=== PATIENT | male | born 1985 | race Caucasian/White ===

== ENCOUNTER 2020-05-07 19:45 | Inpatient (IN) | payer MEDICAID, SELFPAY ==
[2020-05-07 19:46] VITALS: BP 129/85; PULSE 98; RESP 16; TEMP 35.7; O2SAT 98; BMI 32.5
--- NOTE | 2020-05-07 19:55 | ED.VIS.GEN ---
History of Present Illness Chief Complaint: Substance Abuse Detail of Chief Complaint: Requesting detox from fentanyl Informant: Patient Onset: - - Has been injecting for greater than 3 years Context: Gradual Onset Timing: Continuous Quality: Injects a couple grams of fentanyl daily Location: Extremities Current Severity: - - No symptoms of withdrawal Worsened by: Not applicable Relieved by: Not applicable Associated Symptoms: No symptoms presently Narrative: Patient is a 34-year-old male who does smoke and injects fentanyl daily. He has been using for greater than 3 years. His last hepatitis and HIV tests were negative. He works construction. He denies alcohol use. He denies any other drug use. He denies headache, visual, ocular or auditory symptoms. He denies neck pain. He denies history of endocarditis. He denies history of infection in back injection sites. He denies GI symptoms. He denies urologic symptoms. Prior similar symptoms: Yes Recent Illness/Hospitalization: No - Past Medical History (1) Opiate addiction Status: Acute Past Medical History - Allergies and Home Meds Allergies/Adverse Reactions: Allergies No Known Allergies Allergy (Verified 05/07/20 19:48) Primary Care Physician: Rosario Doctor,Out of [NON-STAFF] - Past Medical History: None Surgical History: no surgical history Smoking Status: Heavy Smoker (>10/day) Alcohol: None Drugs: - - Fentanyl Review of Systems General: Denies: Chills, Fever, Malaise, Subjective, Sweats Eyes: Denies: Visual changes - bilaterally, Blurred Vision - bilaterally ENT: Denies: Rhinorrhea, Sore throat Cardiovascular: Denies: Chest pain, Palpitations Respiratory: Denies: Dyspnea, Cough, Dyspnea on exertion Gastrointestinal: Denies: Abdominal pain, Nausea, Vomiting, Diarrhea, Melena, Hematochezia Genitourinary: Denies: Hematuria, Frequency Musculoskeletal: Denies: Myalgias, Arthralgias, Neck pain, Back pain, Swelling, Extremity Pain, -, - Skin: Reports: Wounds - Track barriga. Denies: Rash Neurological: Denies: Headache, Weakness Hematologic: Denies: Easy bruising, Easy bleeding Allergy: Denies: Uticaria Physical Exam Vital Signs/Narrative: Vital Signs Temp Pulse Resp BP Pulse Ox 05/07/20 19:46 96.3 F L 98 16 129/85 H 98 Inital Vital Signs reviewed: Yes General: Well nourished, Well developed, No Acute Distress Head: Normocephalic, Atraumatic Eyes: Perrl, EOMI ENT: Moist mucous membranes, No rhinorrhea Neck: Supple, Nontender Cardiovascular: Regular rate, Regular rhythm, No murmurs Respiratory: No distress, CTA bilaterally, Chest nontender Abdomen: Soft, Nontender, Nondistended, Normal bowel sounds Back: Nontender, Normal Inspection Extremities: Nontender, No edema, - - Patient has numerous track barriga upper extremities. There is no evidence infection. Skin: Normal color, No rash Neurological: Alert, Oriented x3, Cranial nerves II-XII grossly intact, Normal Strength, Normal Sensation Psychological: Normal affect, Normal Mood Diagnostic/Tx/Re-eval Laboratory Results 05/07/20 05/07/20 05/07/20 20:10 20:10 20:10 WBC 9.3 RBC 5.53 Hgb 13.7 Hct 44.6 MCV 80.7 MCH 24.8 L MCHC 30.7 L RDW Std Deviation 44.7 H RDW Coeff of Shelby 15.1 H Plt Count 279 MPV 10.2 Immature Gran % (Auto) 0.400 Neut % (Auto) 63.5 Lymph % (Auto) 23.3 [place] % (Auto) 9.3 Eos % (Auto) 3.1 Baso % (Auto) 0.4 Absolute Neuts (auto) 5.9 Absolute Lymphs (auto) 2.18 Nucleated RBC % 0 Sodium 137 Potassium 4.0 Chloride 107 Carbon Dioxide 26.0 Anion Gap 4 L BUN 13 Creatinine 0.88 Estim Creat Clear Calc 116.59 Est GFR (MDRD) Af Amer 129 Est GFR (MDRD) Non-Af 106 BUN/Creatinine Ratio 14.8 Glucose 103 Calcium 8.9 Total Bilirubin 0.50 AST 60 H ALT 126 H Alkaline Phosphatase 110 Total Protein 8.3 H Albumin 3.5 Globulin 4.8 H Albumin/Globulin Ratio 0.7 L Urine Opiates Screen Urine Methadone Screen Ur Barbiturates Screen Ur Phencyclidine Scrn Ur Amphetamines Screen U Methamphetamin-MDMA U Benzodiazepines Scrn Urine Cocaine Screen U Cannabinoids Screen Ur Drug Screen Comment Ethyl Alcohol 3.0 05/07/20 20:10 WBC RBC Hgb Hct MCV MCH MCHC RDW Std Deviation RDW Coeff of [place] Plt Count MPV Immature Gran % (Auto) Neut % (Auto) Lymph % (Auto) [place] % (Auto) Eos % (Auto) Baso % (Auto) Absolute Neuts (auto) Absolute Lymphs (auto) Nucleated RBC % Sodium Potassium Chloride Carbon Dioxide Anion Gap BUN Creatinine Estim Creat Clear Calc Est GFR (MDRD) Af Amer Est GFR (MDRD) Non-Af BUN/Creatinine Ratio Glucose Calcium Total Bilirubin AST ALT Alkaline Phosphatase Total Protein Albumin Globulin Albumin/Globulin Ratio Urine Opiates Screen NEGATIVE Urine Methadone Screen NEGATIVE Ur Barbiturates Screen NEGATIVE Ur Phencyclidine Scrn NEGATIVE Ur Amphetamines Screen POSITIVE H U Methamphetamin-MDMA POSITIVE H U Benzodiazepines Scrn NEGATIVE Urine Cocaine Screen NEGATIVE U Cannabinoids Screen POSITIVE H Ur Drug Screen Comment Ethyl Alcohol - Medical Decision Making Addiction order set was initiated. Since patient is symptom-free presently no treatment was initiated. He is aware that he cannot smoke. ED Disposition - Plan for ED Patient: Disposition: Acute Care [facility] Diagnosis: Illicit drug use, Opiate abuse, continuous, Methamphetamine use Referrals: [facility] Doctor,Out of [NON-STAFF] -
[2020-05-07 20:29] LABS: Absolute Lymphocyte Count 2.18 X10^3/uL (0.83-4.51); Absolute Neutrophil Count 5.9 X10^3/uL (2.0-7.7); Basophil# 0.04 X10^3/uL; Basophil% 0.4 % (0-1); Eosinophil# 0.29 X10^3/uL; Eosinophils% 3.1 % (0-5); Hematocrit 44.6 % (40-54); Hemoglobin 13.7 g/dL (13.0-16.5); Lymphocyte # 2.18 X10^3/ul (4.0); Lymphocyte % 23.3 % (19-41); Mean Corp Hgb Conc 30.7 g/dL (32-36); Mean Corpuscular Hgb 24.8 pg (27.0-32.0); Mean Corpuscular Volume 80.7 fL (80-94); Mean Platelet Vol. 10.2 fl (6.2-12.0); Monocyte# 0.87 X10^3/uL; Monocyte% 9.3 % (0-10); NRBC Flagged by Analyzer 0 % (0-5); Neutrophil # 5.92 X10^3/uL (2.7-7.7); Neutrophil % 63.5 % (47-70); Platelet Count 279 K/mm3 (150-450); RBC Distribution Width CV 15.1 % (11.6-14.6); RBC Distribution Width SD 44.7 fl (35.1-43.9); Red Blood Count 5.53 M/mm3 (4.6-6.2); White Blood Count 9.3 K/mm3 (4.4-11.0)
--- NOTE | 2020-05-07 20:42 | CM.ED ---
Social Work Consult: Substance Abuse Informant: Self Referral Met with patient in room. Introduced self and social research assistant role. Patient agreeable to speaking with this social research assistant. Patient reports to be seeking help with Fentanyl use. Patient reports to want to get clean. Patient wanting to admit to [facility] for medical management of withdrawal symptoms. Patient reports to have last used this morning. Patient denies any mental health history of current suicidal thoughts. Patient verbally agreeing to [facility] contract. Patient with no questions. Vlad JAVIER, ABELARDO
[2020-05-07 20:54] LABS: ALB/GLOB Ratio 0.7 RATIO (0.9-2.4); AST(SGOT) 60 U/L (15-37); Alanine Aminotransfer ALT/SGPT 126 U/L (16-61); Albumin, Serum 3.5 g/dL (3.2-5.0); Alkaline Phosphatase 110 U/L (45-117); Anion Gap 4 (5-15); BUN 13 mg/dL (7-18); BUN/Creat Ratio 14.8 RATIO (10-20); Calcium,Total 8.9 mg/dL (8.5-10.1); Chloride 107 mmol/L (98-107); Creatinine, Serum 0.88 mg/dL (0.70-1.30); EST Glomerular Filtration Rate 106 mL/min (>60); Est Glom Filt Rate - Afr Amer 129 mL/min (>60); Estimated Creatinine Clearance 116.59 ml/min; Globulin 4.8 g/dL (2.2-4.2); Glucose 103 mg/dL (74-106); Protein, Total 8.3 g/dL (6.4-8.2); Sodium Level 137 mmol/L (136-145)
[2020-05-07 21:06] LABS: Amphetamine Urine VISTA POSITIVE (<1000 ng/mL); Barbiturate Urine VISTA NEGATIVE (< 200 ng/mL); Benzodiazepine Urine VISTA NEGATIVE (< 200 ng/mL); Cocaine Urine VISTA NEGATIVE (< 300 ng/mL); Ecstacy Urine VISTA POSITIVE (< 500 ng/mL); Methadone Urine VISTA NEGATIVE (< 300 ng/mL); PCP Urine VISTA NEGATIVE (< 25 ng/mL); THC Urine VISTA POSITIVE (< 50 ng/mL); Vista UDS pH Range 6
[2020-05-07 21:36] VITALS: BP 125/78; PULSE 81; RESP 16; TEMP 36.6; O2SAT 98
--- NOTE | 2020-05-07 21:43 | CM.ED ---
Social Work Telephone call to [facility]un[facility] Rodas. Yunior updated on patient admission to [facility] program. Vlad Sharpe ELECTRICAL APPLIANCE SERVICER, TAMIKAS
[2020-05-07 21:56] VITALS: BMI 31.7
[2020-05-07 22:02] VITALS: BMI 31.8
--- NOTE | 2020-05-07 22:05 | HP.PCM_ITS ---
Problem List (1) Opiate addiction Status: Acute (2) Illicit drug use Status: Acute (3) Opiate abuse, continuous Status: Acute (4) Methamphetamine use Status: Acute History of Present Illness Date of Admission: 05/07/20 Chief Complaint: fentanyl withdrawal The patient is a 34 year old M presents seeking treatment for fentanyl wi thdrawal. Patient last used was around 5:00 this morning and has been experiencing abdominal cramps, restless legs, rhinitis and yawning. Patient has never sought treatment. Patient is here with his ex-girlfriend who is already established with a program called [facility] and he wishes to follow-up with them after discharge. He does state that he does use marijuana occasionally. Does not over use methamphetamines but is concerned that some of his drugs are contaminated with it. He injects his drugs with exception of the marijuana. [] Past Medical History Medical History: Medical History (Last Updated 05/07/20 @ 22:[address] Kwaku Burroughs, DO) Alcoholism F10.20 Polysubstance (excluding opioids) dependence, daily use F19.20 Allergies No Known Allergies Allergy (Verified 05/07/20 19:48) Home Medications: Ambulatory Orders Medication Instructions Recorded NK 05/07/20 Surgical History: no surgical history Smoking Status: Heavy Smoker (>10/day) Tobacco Use: Cigarettes Alcohol: None Drugs: Marijuana, - - Fentanyl - *Family History Maternal History Items: No pertinent history Review of Systems Constitutional: Denies: Anorexia, Chills, Fever Eyes: Denies: Blurred vision, Double vision HEENT: Denies: Head Aches, Sinus Congestion, Sinus Drainage Cardiovascular: Denies: Chest Pain, Palpitations Respiratory: Denies: Cough, Shortness of breath at rest, Sputum production Gastrointestinal: Reports: Abdominal Pain. Denies: Nausea, Vomiting Hematologic/ Lymphatic: Denies: Easy Bruising, Easy Bleeding Comment: Patient has some irritation in his hand from missed IV injection. All review of systems were negative except as mentioned above in the history of present illness and the other review of systems. VTE Information - Inpt Only VTE Present on Admission: No VTE Mechan Device Prophylaxis: None VTE Pharm Prophylaxis ordered?: No Reason prophylaxis not ordered:: Treatment Not Indicated Patient Problems: Active and Suspected Problems Opiate addiction (Acute) Illicit drug use (Acute) Opiate abuse, continuous (Acute) Methamphetamine use (Acute) - Physical Exam Vitals/I&O's: Vital Signs Temp Pulse Resp BP Pulse Ox 36.6 C 81 16 125/78 H 98 05/07/20 21:36 05/07/20 21:36 05/07/20 21:36 05/07/20 21:36 05/07/20 21:36 Oxygen Delivery Method Room Air Weight: 94.801 kg Body Mass Index (BMI) 31.7 General: Alert, No apparent distress HEENT: Atraumatic, Normocephalic Oral: Moist Mucosa, No Gingival or Mucosal Lesions/ Ulcerations Neck: No Nodes, Thyroid Normal Size and Texture Lungs: Clear to auscultation, Normal air movement, No rhonchi, No wheeze, No rales Cardiovascular: Regular rate, Regular Rhythm, Normal S1, Normal S2, No murmurs Abdomen: Bowel Sounds Present, Soft, Non Tender, Non-Distended, No Hepato-spl enomegaly Extremities: No edema, No Calf Tenderness Skin: No rashes, No breakdown Psych/Mental Status: Appropriate, Anxious Laboratory Results 05/07/20 20:10: WBC 9.3, RBC 5.53, Hgb 13.7, Hct 44.6, MCV 80.7, MCH 24.8 L, MCHC 30.7 L, RDW Std Deviation 44.7 H, RDW Coeff of Shelby 15.1 H, Plt Count 279, MPV 10.2, Immature Gran % (Auto) 0.400, Neut % (Auto) 63.5, Lymph % (Auto) 23.3, [place] % (Auto) 9.3, Eos % (Auto) 3.1, Baso % (Auto) 0.4, Absolute Neuts (auto) 5.9, Absolute Lymphs (auto) 2.18, Nucleated RBC % 0 05/07/20 20:10: Sodium 137, Potassium 4.0, Chloride 107, Carbon Dioxide 26.0, Anion Gap 4 L, BUN 13, Creatinine 0.88, Estim Creat Clear Calc 116.59, Est GFR (MDRD) Af Amer 129, Est GFR (MDRD) Non-Af 106, BUN/Creatinine Ratio 14.8, Glucose 103, Calcium 8.9, Total Bilirubin 0.50, AST 60 H, ALT 126 H, Alkaline Phosphatase 110, Total Protein 8.3 H, Albumin 3.5, Globulin 4.8 H, Albumin/Globulin Ratio 0.7 L 05/07/20 20:10: Ethyl Alcohol 3.0 05/07/20 20:10: Urine Opiates Screen NEGATIVE, Urine Methadone Screen NEGATIVE, Ur Barbiturates Screen NEGATIVE, Ur Phencyclidine Scrn NEGATIVE, Ur Amphetamines Screen POSITIVE H, U Methamphetamin-MDMA POSITIVE H, U Benzodiazepines Scrn NEGATIVE, Urine Cocaine Screen NEGATIVE, U Cannabinoids Screen POSITIVE H, Ur Drug Screen Comment Assessment/Plan All Active Problems Opiate addiction (Acute) Illicit drug use (Acute) Opiate abuse, continuous (Acute) Methamphetamine use (Acute) 1. Acute opiate withdrawal: Patient will be initiated on buprenorphine taper. Explained the patient that this take place over approximately 3 days. He will have other agents to help him with other somatic complaints while he is here. Patient states that he wishes to follow-up with a program [facility]. Will have a case management help facilitate this. 2. History of alcohol abuse. Patient had been a heavy drinker in the past but has quit and has been sober from that a number of years. 3. VTE prophylaxis low risk and not indicated at this time. Inpatient E&M: 90257 Init Hosp L2
[2020-05-07] MEDS: traZODone 100 MG Tablet PO (22:47)
[2020-05-07] MEDS: Methocarbamol 750 MG Tablet 1500 MG PO (22:47)
[2020-05-07] MEDS: Buprenorphine HCl 2 MG TAB.SUBL SL (22:47)
[2020-05-08] MEDS: hydrOXYzine PAM 25 MG Capsule 50 MG PO ×2 (02:01→17:07)
[2020-05-08] MEDS: cloNIDine HCl 0.1 MG Tablet PO ×2 (02:01→17:07)
[2020-05-08 02:03] VITALS: BP 137/81; PULSE 115; RESP 18; TEMP 37.3; O2SAT 99
[2020-05-08] MEDS: Buprenorphine HCl 2 MG TAB.SUBL SL ×3 (06:28→21:43)
[2020-05-08 06:33] VITALS: BP 123/78; PULSE 87; RESP 16; TEMP 37.1; O2SAT 100
--- NOTE | 2020-05-08 07:58 | PCM.PN.HOSP ---
Patient Problems: Active and Suspected Problems (Last Updated 05/07/20 @ 22:[address] Kwaku Burroughs, DO) Opiate addiction (Acute) Illicit drug use (Acute) Opiate abuse, continuous (Acute) Methamphetamine use (Acute) Reason for Visit: Follow-up on acute opioid withdrawal Subjective: Patient was seen and examined. Denied any new complaints. His Cina score is improving. Objective: Physical exam: General: Alert, No apparent distress HEENT: Atraumatic, Normocephalic Oral: Moist Mucosa, No Gingival or Mucosal Lesions/ Ulcerations Neck: No Nodes, Thyroid Normal Size and Texture Lungs: Clear to auscultation, Normal air movement, No rhonchi, No wheeze, No rales Cardiovascular: Regular rate, Regular Rhythm, Normal S1, Normal S2, No murmurs Abdomen: Bowel Sounds Present, Soft, Non Tender, Non-Distended, No Hepato-splenomegaly Extremities: No edema, No Calf Tenderness Skin: No rashes, No breakdown Psych/Mental Status: Appropriate, Anxious Vitals/I&O's: Vital Signs Temp Pulse Resp BP Pulse Ox 98.7 F 87 16 123/78 H 100 05/08/20 06:33 05/08/20 06:33 05/08/20 06:33 05/08/20 06:33 05/08/20 06:33 Oxygen Delivery Method Room Air Weight: 94.801 kg Body Mass Index (BMI) 31.7 Laboratory Results 05/07/20 20:10: WBC 9.3, RBC 5.53, Hgb 13.7, Hct 44.6, MCV 80.7, MCH 24.8 L, MCHC 30.7 L, RDW Std Deviation 44.7 H, RDW Coeff of [place] 15.1 H, Plt Count 279, MPV 10.2, Immature Gran % (Auto) 0.400, Neut % (Auto) 63.5, Lymph % (Auto) 23.3, [place] % (Auto) 9.3, Eos % (Auto) 3.1, Baso % (Auto) 0.4, Absolute Neuts (auto) 5.9, Absolute Lymphs (auto) 2.18, Nucleated RBC % 0 05/07/20 20:10: Sodium 137, Potassium 4.0, Chloride 107, Carbon Dioxide 26.0, Anion Gap 4 L, BUN 13, Creatinine 0.88, Estim Creat Clear Calc 116.59, Est GFR (MDRD) Af Amer 129, Est GFR (MDRD) Non-Af 106, BUN/Creatinine Ratio 14.8, Glucose 103, Calcium 8.9, Total Bilirubin 0.50, AST 60 H, ALT 126 H, Alkaline Phosphatase 110, Total Protein 8.3 H, Albumin 3.5, Globulin 4.8 H, Albumin/Globulin Ratio 0.7 L 05/07/20 20:10: Ethyl Alcohol 3.0 05/07/20 20:10: Urine Opiates Screen NEGATIVE, Urine Methadone Screen NEGATIVE, Ur Barbiturates Screen NEGATIVE, Ur Phencyclidine Scrn NEGATIVE, Ur Amphetamines Screen POSITIVE H, U Methamphetamin-MDMA POSITIVE H, U Benzodiazepines Scrn NEGATIVE, Urine Cocaine Screen NEGATIVE, U Cannabinoids Screen POSITIVE H, Ur Drug Screen Comment 05/07/20 20:10: Hepatitis A IgM Ab Pending, Hep Bs Antigen Pending, Hep B Core IgM Ab Pending, Hepatitis C Ab (EIA) Pending 05/07/20 20:10: HIV 1&2 Antibody Pending Current Medications Acetaminophen (Acetaminophen 500 Mg Tablet) 500 mg PO Q4H PRN PRN PRN Reason: Temp > 100.4 F Bisacodyl (Bisacodyl 10 Mg Suppository) 10 mg RECTAL DAILY PRN PRN PRN Reason: Constipation Buprenorphine HCl (Buprenorphine Hcl 2 Mg Tab.Subl) 4 mg SL Q8H FELIX; Taper Stop: 05/10/20 22:29 Last Admin: 05/08/20 06:28 Dose: 4 mg Documented by: Clonidine (Clonidine Hcl 0.1 Mg Tablet) 0.1 mg PO Q8H PRN PRN PRN Reason: RESTLESSNESS Last Admin: 05/08/20 02:01 Dose: 0.1 mg Documented by: Dicyclomine HCl (Dicyclomine 10 Mg Capsule) 20 mg PO Q6H PRN PRN PRN Reason: Abdominal Discomfort Gabapentin (Gabapentin 300 Mg Capsule) 300 mg PO Q8H PRN PRN PRN Reason: moderate to severe anxiety Hydroxyzine Pamoate (Hydroxyzine Sonya 25 Mg Capsule) 50 mg PO Q6H PRN PRN PRN Reason: mild anxiety Last Admin: 05/08/20 02:01 Dose: 50 mg Documented by: Ibuprofen (Ibuprofen 600 Mg Tablet) 600 mg PO Q8H PRN PRN PRN Reason: Pain Score 1-10 Influenza Virus Vaccine Quadrival (Influenza Vaccine (6mos+)/Pf 0.5 Ml Syringe) 0.5 ml IM .ONCE ONE Stop: 05/08/20 10:01 Loperamide HCl (Loperamide 2 Mg Capsule) 2 mg PO Q4H PRN PRN PRN Reason: LOOSE STOOLS Methocarbamol (Methocarbamol 750 Mg Tablet) 1,500 mg PO Q6H PRN PRN PRN Reason: MUSCLE SPASM Last Admin: 05/07/20 22:47 Dose: 1,500 mg Documented by: Nicotine (Nicotine 21 Mg Patch) 21 mg TRANSDERM. DAILY FELIX Nutritional Formula (Lactose Free) (Ensure Enlive 120 Ml Liquid) 120 ml PO 4X/DAY FELIX Ondansetron HCl (Ondansetron 8 Mg Tablet) 8 mg PO Q8H PRN PRN PRN Reason: NAUSEA Senna (Senna Tablet) 2 tablet PO QHS PRN PRN PRN Reason: Constipation Trazodone HCl (Trazodone 100 Mg Tablet) 100 mg PO QHS PRN PRN PRN Reason: INSOMNIA Last Admin: 05/07/20 22:47 Dose: 100 mg Documented by: STROKE Vital Signs/Narrative: Vital Signs Temp Pulse Resp BP Pulse Ox 05/08/20 06:33 98.7 F 87 16 123/78 H 100 Medical Necessity - Tobacco Use Smoking Status: Heavy Smoker (>10/day) Tobacco Use: Cigarettes Assessment/Plan All Active Problems (Last Updated 05/07/20 @ 22:[address] Kwaku Burroughs, DO) Opiate addiction (Acute) Illicit drug use (Acute) Opiate abuse, continuous (Acute) Methamphetamine use (Acute) 1. Acute opioid withdrawal, improving, Patient continues to require medication and monitoring for withdrawal based on regular assessment and remains appropriate for ASAM level 4.0 Continue on buprenorphine taper 2. Nicotine dependence, on replacement 3. History of alcohol use disorder, advised to continue to abstain 4. DVT prophylaxis with early ambulation Inpatient E&M: [id number] [facility] [[email or web address]] Hosp L2
[2020-05-08 09:42] LABS: HIV - WCH Non-Reactive (Nonreactive)
[2020-05-08 09:54] VITALS: BP 121/68; PULSE 99; RESP 18; TEMP 36.8; O2SAT 100
[2020-05-08] MEDS: Methocarbamol 750 MG Tablet 1500 MG PO ×2 (09:57→17:07)
[2020-05-08] MEDS: Dicyclomine 10 MG Capsule 20 MG PO (09:57)
[2020-05-08 10:02] VITALS: PULSE 99
--- NOTE | 2020-05-08 12:09 | ADDICTION ---
This parts data writer attempted to meet with patient in his room. Patient did not rouse to 3 verbal attempts. This parts data writer will attempt to meet with patient on 05/09 or at next visit.
[2020-05-08 13:41] VITALS: BP 114/74; PULSE 83; RESP 18; TEMP 36.6; O2SAT 100
[2020-05-08 21:41] VITALS: BP 118/73; PULSE 89; RESP 14; TEMP 36.6; O2SAT 96
[2020-05-08] MEDS: traZODone 100 MG Tablet PO (21:43)
[2020-05-09 05:32] VITALS: BP 116/75; PULSE 84; RESP 18; TEMP 36.2; O2SAT 100
[2020-05-09] MEDS: cloNIDine HCl 0.1 MG Tablet PO ×2 (05:34→14:51)
[2020-05-09] MEDS: Ibuprofen 600 MG Tablet PO ×2 (05:34→22:07)
[2020-05-09] MEDS: Methocarbamol 750 MG Tablet 1500 MG PO ×2 (05:34→14:50)
[2020-05-09] MEDS: Buprenorphine HCl 2 MG TAB.SUBL SL ×3 (05:34→22:05)
--- NOTE | 2020-05-09 07:15 | PN_ITS ---
Patient Problems: Active and Suspected Problems (Last Updated 05/07/20 @ 22:[address] Kwaku Burroughs, DO) Opiate addiction (Acute) Illicit drug use (Acute) Opiate abuse, continuous (Acute) Methamphetamine use (Acute) Reason for Visit: Follow-up on acute opioid withdrawal Subjective: Patient was seen and examined. No acute events overnight. Objective: Physical exam: General: Alert, No apparent distress, comfortable HEENT: Atraumatic, Normocephalic Oral: Moist Mucosa, No Gingival or Mucosal Lesions/ Ulcerations Neck: No Nodes, Thyroid Normal Size and Texture Lungs: Clear to auscultation, Normal air movement, No rhonchi, No wheeze, No rales Cardiovascular: Regular rate, Regular Rhythm, Normal S1, Normal S2, No murmurs Abdomen: Bowel Sounds Present, Soft, Non Tender, Non-Distended, No Hepato- splenomegaly Extremities: No edema, No Calf Tenderness Skin: No rashes, No breakdown Psych/Mental Status: Appropriate, Anxious Vitals/I&O's: Vital Signs Temp Pulse Resp BP Pulse Ox 97.2 F L 84 18 116/75 100 05/09/20 05:32 05/09/20 05:32 05/09/20 05:32 05/09/20 05:32 05/09/20 05:32 Oxygen Delivery Method Room Air Weight: 94.801 kg Body Mass Index (BMI) 31.7 Intake and Output for Last 24 Hours 05/07/20 05/08/20 05/09/20 23:59 23:59 23:59 Intake Total 400 / 1000 1100 / 1100 Balance 400 / 1000 1100 / 1100 Laboratory Results 05/07/20 20:10: HIV 1&2 Antibody Non-Reactive Current Medications Acetaminophen (Acetaminophen 500 Mg Tablet) 500 mg PO Q4H PRN PRN PRN Reason: Temp > 100.4 F Bisacodyl (Bisacodyl 10 Mg Suppository) 10 mg RECTAL DAILY PRN PRN PRN Reason: Constipation Buprenorphine HCl (Buprenorphine Hcl 2 Mg Tab.Subl) 2 mg SL Q8H FELIX; Taper Stop: 05/10/20 22:29 Last Admin: 05/09/20 05:34 Dose: 2 mg Documented by: Clonidine (Clonidine Hcl 0.1 Mg Tablet) 0.1 mg PO Q8H PRN PRN PRN Reason: RESTLESSNESS Last Admin: 05/09/20 05:34 Dose: 0.1 mg Documented by: Dicyclomine HCl (Dicyclomine 10 Mg Capsule) 20 mg PO Q6H PRN PRN PRN Reason: Abdominal Discomfort Last Admin: 05/08/20 09:57 Dose: 20 mg Documented by: Gabapentin (Gabapentin 300 Mg Capsule) 300 mg PO Q8H PRN PRN PRN Reason: moderate to severe anxiety Hydroxyzine Pamoate (Hydroxyzine Sonya 25 Mg Capsule) 50 mg PO Q6H PRN PRN PRN Reason: mild anxiety Last Admin: 05/08/20 17:07 Dose: 50 mg Documented by: Ibuprofen (Ibuprofen 600 Mg Tablet) 600 mg PO Q8H PRN PRN PRN Reason: Pain Score 1-10 Last Admin: 05/09/20 05:34 Dose: 600 mg Documented by: Loperamide HCl (Loperamide 2 Mg Capsule) 2 mg PO Q4H PRN PRN PRN Reason: LOOSE STOOLS Methocarbamol (Methocarbamol 750 Mg Tablet) 1,500 mg PO Q6H PRN PRN PRN Reason: MUSCLE SPASM Last Admin: 05/09/20 05:34 Dose: 1,500 mg Documented by: Nicotine (Nicotine 21 Mg Patch) 21 mg TRANSDERM. DAILY FELIX Last Admin: 05/08/20 09:58 Dose: 21 mg Documented by: Nutritional Formula (Lactose Free) (Ensure Enlive 120 Ml Liquid) 120 ml PO 4X/DAY FELIX Last Admin: 05/08/20 21:43 Dose: Not Given Documented by: Ondansetron HCl (Ondansetron 8 Mg Tablet) 8 mg PO Q8H PRN PRN PRN Reason: NAUSEA Senna (Senna Tablet) 2 tablet PO QHS PRN PRN PRN Reason: Constipation Trazodone HCl (Trazodone 100 Mg Tablet) 100 mg PO QHS PRN PRN PRN Reason: INSOMNIA Last Admin: 05/08/20 21:43 Dose: 100 mg Documented by: STROKE Vital Signs/Narrative: Vital Signs Temp Pulse Resp BP Pulse Ox 05/09/20 05:32 97.2 F L 84 18 116/75 100 Medical Necessity - Tobacco Use Smoking Status: Heavy Smoker (>10/day) Tobacco Use: Cigarettes Assessment/Plan All Active Problems (Last Updated 10/13/20 @ 22:[address] Kwaku Burroughs, DO) Opiate addiction (Acute) Illicit drug use (Acute) Opiate abuse, continuous (Acute) Methamphetamine use (Acute) 1. Acute opioid withdrawal, improving, Patient continues to require medication and monitoring for withdrawal based on regular assessment and remains appropriate for ASAM level 4.0 Continue on buprenorphine taper 2. Nicotine dependence, on replacement 3. History of alcohol use disorder, advised to continue to abstain 4. DVT prophylaxis with early ambulation Inpatient E&M: 36847 Subs Hosp L2
--- NOTE | 2020-05-09 09:54 | ADDICTION ---
this law writer met with patient in his room to conduct ASAM, MSE and DUDIT assessments and to plan for discharge. Patient was alert and oriented and participated appropraitely but appeared agitated throughout this meeting. Patient plans to discharge to home after completing medical withdrawal management and has agreed to schedule an appointment with [facility] on the day that he discharges. He declined coordination by this law writer. He noted that he has transportation home after discharge. Completed documentation to be sent to [facility].
[2020-05-09 10:47] VITALS: BP 120/68; PULSE 86; RESP 18; TEMP 36.8; O2SAT 100
[2020-05-09 14:52] VITALS: BP 103/47; PULSE 80; RESP 16; TEMP 36.4; O2SAT 99
--- NOTE | 2020-05-09 15:41 | CHAPLAIN ---
Type of Pastoral Visit _x__ Initial Visit ___ Follow-up Visit ___ On-call Visit ___ General Patient Visit ___ Spiritual Assessment ___ Family Conference ___ Bereavement ___ Rapid Response ___ Code Blue ___ Other (describe below) Pastoral Care Referral From _x__ Patient ___ Family ___ Nurse ___ Physician ___ [facility] ___ Chief Meter Reader ___ Other (describe below) Sacrament/Intervention _x__ Active listening ___ Anointing ___ Rastafari ___ Bereavement ___ Communion ___ Caitlin exploration ___ ___ Life review _x__ Prayer ___ Reconciliation ___ Sacrament of Sick _x__ Supportive presence ___ Wedding ___ Other (describe below) Pastoral Comments patient was alert and able to talk; welcomed visit and presence; pt speaks of desire to get clean and to more normal life; pt has support of his mother and brother; 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
[2020-05-09 22:00] VITALS: BP 104/63; PULSE 79; RESP 18; TEMP 36.6; O2SAT 97
[2020-05-09] MEDS: traZODone 100 MG Tablet PO (22:07)
--- NOTE | 2020-05-10 07:48 | PN_ITS ---
Patient Problems: Active and Suspected Problems (Last Updated 05/07/20 @ 22:[address] Kwaku Burroughs, DO) Opiate addiction (Acute) Illicit drug use (Acute) Opiate abuse, continuous (Acute) Methamphetamine use (Acute) Reason for Visit: Follow-up on acute opioid withdrawal Subjective: atient was seen and examined. Objective: Physical exam: General: Alert, No apparent distress, comfortable HEENT: Atraumatic, Normocephalic Oral: Moist Mucosa, No Gingival or Mucosal Lesions/ Ulcerations Neck: No Nodes, Thyroid Normal Size and Texture Lungs: Clear to auscultation, Normal air movement, No rhonchi, No wheeze, No rales Cardiovascular: Regular rate, Regular Rhythm, Normal S1, Normal S2, No murmurs Abdomen: Bowel Sounds Present, Soft, Non Tender, Non-Distended, No Hepato- splenomegaly Extremities: No edema, No Calf Tenderness Skin: No rashes, No breakdown Psych/Mental Status: Appropriate, Anxious Vitals/I&O's: Vital Signs Temp Pulse Resp BP Pulse Ox 97.8 F 79 18 104/63 97 05/09/20 22:00 05/09/20 22:00 05/09/20 22:00 05/09/20 22:00 05/09/20 22:00 Oxygen Delivery Method Room Air Weight: 94.801 kg Body Mass Index (BMI) 31.7 Intake and Output for Last 24 Hours 05/08/20 05/09/20 05/10/20 23:59 23:59 23:59 Intake Total 400 / 1000 1500 / 1900 400 / 400 Balance 400 / 1000 1500 / 1900 400 / 400 Current Medications Acetaminophen (Acetaminophen 500 Mg Tablet) 500 mg PO Q4H PRN PRN PRN Reason: Temp > 100.4 F Bisacodyl (Bisacodyl 10 Mg Suppository) 10 mg RECTAL DAILY PRN PRN PRN Reason: Constipation Buprenorphine HCl (Buprenorphine Hcl 2 Mg Tab.Subl) 2 mg SL Q12H FELIX; Taper Stop: 05/10/20 22:29 Last Admin: 05/09/20 22:05 Dose: 2 mg Documented by: Clonidine (Clonidine Hcl 0.1 Mg Tablet) 0.1 mg PO Q8H PRN PRN PRN Reason: RESTLESSNESS Last Admin: 05/09/20 14:51 Dose: 0.1 mg Documented by: Dicyclomine HCl (Dicyclomine 10 Mg Capsule) 20 mg PO Q6H PRN PRN PRN Reason: Abdominal Discomfort Last Admin: 05/08/20 09:57 Dose: 20 mg Documented by: Gabapentin (Gabapentin 300 Mg Capsule) 300 mg PO Q8H PRN PRN PRN Reason: moderate to severe anxiety Hydroxyzine Pamoate (Hydroxyzine Sonya 25 Mg Capsule) 50 mg PO Q6H PRN PRN PRN Reason: mild anxiety Last Admin: 05/08/20 17:07 Dose: 50 mg Documented by: Ibuprofen (Ibuprofen 600 Mg Tablet) 600 mg PO Q8H PRN PRN PRN Reason: Pain Score 1-10 Last Admin: 05/09/20 22:07 Dose: 600 mg Documented by: Loperamide HCl (Loperamide 2 Mg Capsule) 2 mg PO Q4H PRN PRN PRN Reason: LOOSE STOOLS Methocarbamol (Methocarbamol 750 Mg Tablet) 1,500 mg PO Q6H PRN PRN PRN Reason: MUSCLE SPASM Last Admin: 05/09/20 14:50 Dose: 1,500 mg Documented by: Nicotine (Nicotine 21 Mg Patch) 21 mg TRANSDERM. DAILY FELIX Last Admin: 05/09/20 09:59 Dose: 21 mg Documented by: Nutritional Formula (Lactose Free) (Ensure Enlive 120 Ml Liquid) 120 ml PO 4X/DAY [facility] Last Admin: 05/09/20 22:31 Dose: Not Given Documented by: Ondansetron HCl (Ondansetron 8 Mg Tablet) 8 mg PO Q8H PRN PRN PRN Reason: NAUSEA Senna (Senna Tablet) 2 tablet PO QHS PRN PRN PRN Reason: Constipation Trazodone HCl (Trazodone 100 Mg Tablet) 100 mg PO QHS PRN PRN PRN Reason: INSOMNIA Last Admin: 05/09/20 22:07 Dose: 100 mg Documented by: Medical Necessity - Tobacco Use Smoking Status: Heavy Smoker (>10/day) Tobacco Use: Cigarettes Assessment/Plan All Active Problems (Last Updated 05/07/20 @ 22:[address] Kwaku Burroughs, DO) Opiate addiction (Acute) Illicit drug use (Acute) Opiate abuse, continuous (Acute) Methamphetamine use (Acute) 1. Acute opioid withdrawal, improving, Patient continues to require medication and monitoring for withdrawal based on regular assessment and remains appropriate for ASAM level 4.0 Continue on buprenorphine taper 2. Nicotine dependence, on replacement 3. History of alcohol use disorder, advised to continue to abstain 4. DVT prophylaxis with early ambulation Inpatient E&M: 61924 Subs Hosp L2
[2020-05-10 08:08] LABS: Hepatitis A IgM Antibody Negative (Negative); Hepatitis B Core AB IgM Negative (Negative)
[2020-05-10 10:11] VITALS: BP 99/54; PULSE 72; RESP 18; TEMP 36.9; O2SAT 95
[2020-05-10] MEDS: Buprenorphine HCl 2 MG TAB.SUBL SL (10:19)
--- NOTE | 2020-05-10 11:42 | PCM.DC ---
- Discharge Diagnoses Current Active Problems: Current Active and Chronic Problems (Last Updated 05/07/20 @ 22:[address] Kwaku Burroughs, DO) Opiate addiction (Acute) Illicit drug use (Acute) Opiate abuse, continuous (Acute) Methamphetamine use (Acute) Reason(s) for Visit for Discharge Instructions: Acute opioid withdrawal You will use the following diet at home:: Regular Your food should be the consistency of: Regular Your liquids should be the consistency of: Regular/Thin Discharge Activity: Return to Normal Activity Additional Instructions: You are advised to stop using opioids. Follow-up with your outpatient [facility] program as scheduled Allergies/Adverse Reactions: Allergies No Known Allergies Allergy (Verified 05/07/20 19:48) Medications to take at Discharge NK 05/07/20 Primary Care Physician: Rosario De La Paz,Out of [NON-STAFF] - Please follow up with your Primary Care Physician in: within 1-2 weeks Test Results: Test results from this visit will be discussed in further detail at your follow-up appointment, if applicable. Proposed Discharge Date: 05/10/20
--- NOTE | 2020-05-10 11:47 | DS.PCM_ITS ---
Discharge Date and Diagnosis - Problem List Patient Problems: Active and Suspected Problems (Last Updated 05/07/20 @ 22:[address] Kwaku Burroughs DO) Opiate addiction (Acute) Illicit drug use (Acute) Opiate abuse, continuous (Acute) Methamphetamine use (Acute) Date of Admission: 05/07/20 Date of Discharge: 05/10/20 - Primary Discharge Diagnosis Acute Problems: Active Problems (Last Updated 05/07/20 @ 22:[address] Kwaku Burroughs DO) Acute opioid withdrawal Polysubstance use disorder Nicotine dependence Newly diagnosed chronic hepatitis B and C Hospital Course and Treatment Operations: None Procedures: None Summary of Care Provided: The patient is a 34 year old M with past medical history of polysubstance use who comes in with opiate withdrawal symptoms from fentanyl. [facility] and maintained on the buprenorphine taper. He continued to do well. His HIV results were negative. Acute hepatitis panel was positive for hepatitis B and C. Patient was told to follow-up with his primary care doctor for referral for treatment. Patient Problems: Active and Suspected Problems (Last Updated 05/07/20 @ 22:[address] Kwaku Burroughs DO) Opiate addiction (Acute) Illicit drug use (Acute) Opiate abuse, continuous (Acute) Methamphetamine use (Acute) Subjective: On the day of discharge, patient was seen and examined. Denied any new complaints. Objective: Physical exam: General: Alert, No apparent distress, comfortable HEENT: Atraumatic, Normocephalic Oral: Moist Mucosa, No Gingival or Mucosal Lesions/ Ulcerations Neck: No Nodes, Thyroid Normal Size and Texture Lungs: Clear to auscultation, Normal air movement, No rhonchi, No wheeze, No rales Cardiovascular: Regular rate, Regular Rhythm, Normal S1, Normal S2, No murmurs Abdomen: Bowel Sounds Present, Soft, Non Tender, Non-Distended, No Hepato- splenomegaly Extremities: No edema, No Calf Tenderness Skin: No rashes, No breakdown Psych/Mental Status: Appropriate, Anxious - Physical Exam Vitals/I&O's: Vital Signs Temp Pulse Resp BP Pulse Ox 98.5 F 72 18 99/54 L 95 05/10/20 10:11 05/10/20 10:11 05/10/20 10:11 05/10/20 10:11 05/10/20 10:11 Oxygen Delivery Method Room Air Weight: 94.801 kg Body Mass Index (BMI) 31.7 Intake and Output for Last 24 Hours 05/08/20 05/09/20 05/10/20 23:59 23:59 23:59 Intake Total 400 / 1000 1500 / 1900 400 / 400 Balance 400 / 1000 1500 / 1900 400 / 400 Current Medications Acetaminophen (Acetaminophen 500 Mg Tablet) 500 mg PO Q4H PRN PRN PRN Reason: Temp > 100.4 F Bisacodyl (Bisacodyl 10 Mg Suppository) 10 mg RECTAL DAILY PRN PRN PRN Reason: Constipation Buprenorphine HCl (Buprenorphine Hcl 2 Mg Tab.Subl) 2 mg SL Q12H FELIX; Taper Stop: 05/10/20 22:29 Last Admin: 05/10/20 10:19 Dose: 2 mg Documented by: Clonidine (Clonidine Hcl 0.1 Mg Tablet) 0.1 mg PO Q8H PRN PRN PRN Reason: RESTLESSNESS Last Admin: 05/09/20 14:51 Dose: 0.1 mg Documented by: Dicyclomine HCl (Dicyclomine 10 Mg Capsule) 20 mg PO Q6H PRN PRN PRN Reason: Abdominal Discomfort Last Admin: 05/08/20 09:57 Dose: 20 mg Documented by: Gabapentin (Gabapentin 300 Mg Capsule) 300 mg PO Q8H PRN PRN PRN Reason: moderate to severe anxiety Hydroxyzine Pamoate (Hydroxyzine Sonya 25 Mg Capsule) 50 mg PO Q6H PRN PRN PRN Reason: mild anxiety Last Admin: 05/08/20 17:07 Dose: 50 mg Documented by: Ibuprofen (Ibuprofen 600 Mg Tablet) 600 mg PO Q8H PRN PRN PRN Reason: Pain Score 1-10 Last Admin: 05/09/20 22:07 Dose: 600 mg Documented by: Loperamide HCl (Loperamide 2 Mg Capsule) 2 mg PO Q4H PRN PRN PRN Reason: LOOSE STOOLS Methocarbamol (Methocarbamol 750 Mg Tablet) 1,500 mg PO Q6H PRN PRN PRN Reason: MUSCLE SPASM Last Admin: 05/09/20 14:50 Dose: 1,500 mg Documented by: Nicotine (Nicotine 21 Mg Patch) 21 mg TRANSDERM. DAILY FELIX Last Admin: 05/10/20 10:15 Dose: Not Given Documented by: Nutritional Formula (Lactose Free) (Ensure Enlive 120 Ml Liquid) 120 ml PO 4X/DAY FELIX Last Admin: 05/10/20 10:15 Dose: Not Given Documented by: Ondansetron HCl (Ondansetron 8 Mg Tablet) 8 mg PO Q8H PRN PRN PRN Reason: NAUSEA Senna (Senna Tablet) 2 tablet PO QHS PRN PRN PRN Reason: Constipation Trazodone HCl (Trazodone 100 Mg Tablet) 100 mg PO QHS PRN PRN PRN Reason: INSOMNIA Last Admin: 05/09/20 22:07 Dose: 100 mg Documented by: Discharge Diet: No Restrictions Discharge Activity: Return to Normal Activity Home Medications: Medications to take at Discharge NK 05/07/20 Primary Care Physician: Rosario De La Paz,Out of [NON-STAFF] - Please follow up with your Primary Care Physician in: within 1-2 weeks Disposition: Home Minutes spent on discharge:: 35 Patient Condition:: Stable Medical Necessity - Tobacco Use Smoking Status: Heavy Smoker (>10/day) Tobacco Use: Cigarettes Meaningful Use Info Meaningful Use Diagnoses (Choose all that apply): None applicable Inpatient E&M: 75739 Disch Hosp
[2020-05-10 12:46] LABS: Hep C Antibodies >11.0 s/co ratio (0.0-0.9)
[2020-05-10 12:49] LABS: HEPATITIS B SURFACE AG Positive (Negative)
== END 2020-05-10 13:02 | disposition home or self-care (01) | DRG 773 ==
LOC: ED 21:13 → MS3 21:42
PROVIDERS: Emergency Provider Emergency Medicine; Visit Provider Internal Medicine
DX: F11.23 Opioid dependence with withdrawal (principal); F15.90 Other stimulant use, unspecified, uncomplicated; F12.90 Cannabis use, unspecified, uncomplicated; F17.210 Nicotine dependence, cigarettes, uncomplicated; B18.1 Chronic viral hepatitis B without delta-agent; B18.2 Chronic viral hepatitis C; Z23 Encounter for immunization
CPT/HCPCS: 80053; 80074; 80307; 80320; 85025; 86703; 97802; 99281; 99406; 90686; G0480